=== PATIENT | male | born 1960 | race African-American/Black ===

== ENCOUNTER 2019-11-12 06:26 | Inpatient (IN) ==
[2019-11-12 06:51] LABS: BASO# 0.07 X1000 (0.0-0.2); EOS# 0.13 X1000 (0.0-0.7); EOS% 1.8 % (0.0-10.0); HEMATOCRIT 43.2 % (42.0-52.0); HEMOGLOBIN 13.7 g/dL (14.0-18.0); IMM GRAN# 0.02 X1000 (0.0-0.04); IMM GRAN% 0.3 % (0.0-0.5); LYMPH# 2.96 X1000 (1.2-3.4); LYMPH% 41.2 % (20.5-51.1); MCH 25.1 PG (27-31); MCHC 31.7 g/dL (33-37); MCV 79.3 FL (81-99); MONO# 0.57 X1000 (0.11-0.59); MONO% 7.9 % (1.7-9.3); MPV 10.5 FL (7.4-10.4); NEUT# 3.44 X1000 (1.4-6.5); NEUT% 47.8 % (42.2-75.2); PLT 206 X1000 (130-400); RBC 5.45 XMIL (4.7-6.1); RDW 15.7 % (11.5-14.5); WBC 7.19 X1000 (4.8-10.8)
[2019-11-12 06:52] LABS: BLOOD TYPE ARTERIAL; SAMPLE BLOOD
[2019-11-12 06:53] LABS: ALLEN TEST YES; BE 0.5 mmoll (-3.0-3.0); MODALITY CANNULA; O2(CT) 17.7 mL/dL (15.0-23.0); PCO2(98.6) 44 mmHg (35-45); PO2(98.6) 52 mmHg (60-100); SAO2 90.2 % (95.0-100.0); THB 14.4 g/dL (11.5-17.4); pH(98.6) 7.38 (7.35-7.45)
[2019-11-12 06:56] LABS: O2HB 87.4 % (95.0-99.0)
[2019-11-12] MEDS ORDERED: DUONEB (A & A) INH ONE (07:04)
[2019-11-12] MEDS ORDERED: APRESOLINE IV ONE (07:12)
[2019-11-12 07:25] LABS: INR 0.98; PROTIME 13.1 Seconds (11.0-16.0)
[2019-11-12 07:26] LABS: PTT 30.6 Seconds (22.3-41.8)
--- NOTE | 2019-11-12 07:28 | EKG Report ---
Test Performed on : 11/12/2019 06:35:10 AM Test Reason : sob, dizziness Blood Pressure : / mmHG Vent. Rate : 063 BPM Atrial Rate : 063 BPM P-R Int : 196 ms QRS Dur : 130 ms QT Int : 458 ms P-R-T Axes : 039 -13 013 degrees QTc Int : 468 ms Normal sinus rhythm. Left ventricular hypertrophy with QRS widening Abnormal ECG No previous ECGs available Unconfirmed Result
--- NOTE | 2019-11-12 07:29 | Diag Imaging Result Doc PS360 ---
CHEST-1 VIEW - 11/12/2019 INDICATION: sob, dizziness COMPARISON: None FINDINGS: There is mild cardiomegaly. There is pulmonary vascular congestion. There are some ill-defined increased markings in the lung bases which may represent mild pulmonary edema. No dense consolidations. No large pleural effusion. IMPRESSION: Cardiomegaly. Possible mild interstitial pulmonary edema. Electronically signed by Gerardo Chavis 11/12/2019 7:27 AM
[2019-11-12 07:30] LABS: AGAP 15; ALB/GLOB RATIO 1.5; ALBUMIN 4.2 g/dL (3.5-5.0); ALKALINE PHOSPHATASE 94 U/L (32-122); BUN 16 mg/dL (8-22); CALCIUM 8.8 mg/dL (8.8-10.2); CHLORIDE 105 mmol/L (98-107); COSMO 290; ESTIMATED GFR > 60; GLUCOSE 135 mg/dL (70-104); GOT 28 U/L (10-34); GPT 29 U/L (10-44); POTASSIUM 2.9 mmol/L (3.5-5.1); SODIUM 144 mmol/L (136-145); TCO2 24 mmol/L (25-35); TOTAL BILIRUBIN 0.71 mg/dL (0.20-1.00)
[2019-11-12] MEDS ORDERED: KLOR-CON PO ONE (07:32)
[2019-11-12] MEDS ORDERED: LASIX IV ONE (07:32)
--- NOTE | 2019-11-12 09:06 | Diag Imaging Result Doc PS360 ---
CT ANGIOGRM PULMONARY ARTERIES - 11/12/2019 INDICATION: sob, cough, hypoxia TECHNIQUE: Axial CT images were obtained after administering intravenous contrast. Coronal MIP images were generated. COMPARISON: None FINDINGS: There are several bilateral relatively large pulmonary emboli, involving all the lobar arteries. There is cardiomegaly. There is some hazy dependent atelectasis or infiltrate bilaterally. There is pneumomediastinum in the posterior mediastinum, at and below the level of the tracheal bifurcation. No pneumothorax. Upper abdominal images are unremarkable. There are moderate degenerative changes of the spine. No acute or suspicious bony lesion. IMPRESSION: 1. Several large bilateral pulmonary emboli. 2. Faint pneumomediastinum inferiorly. The reason is uncertain. No fluid collections. 3. Cardiomegaly. 4. This report was discussed with Dr. Moon on 11/12/2019 at 9:03 AM and was readback. This exam was performed using automated exposure control, adjustment of mA or kV according to patient size, and/or use of iterative reconstruction technique Electronically signed by Gerardo Chavis 11/12/2019 9:03 AM
[2019-11-12] MEDS ORDERED: LOVENOX 1 MG/KG SUBQ ONE (09:07)
--- NOTE | 2019-11-12 09:11 | PROVIDER DOCUMENTATION ---
This chart was entered by Renee Pino Scribe, acting as scribe for Kevin Moon MD. HPI-Respiratory General - General Chief Complaint: Nausea/Vomiting Stated Complaint: dizzy,n/v Time Seen by Provider: 11/12/19 06:40 Source: patient Allergies/Adverse Reactions: Patient Allergies Allergy/AdvReac Type Severity Reaction Status Date / Time No Known Allergies Allergy Verified 11/12/19 06:42 - History of Present Illness-Resp Nature of Presenting Problem: 59yom presents to ED by EMS cc SOB. dizziness, headache, weakness and cough w/mucous production. Pt reports he was at the [employer] [place] station this morning, headed into the bathroom and got really dizzy and SOB. Pt denies CP/F/C. Pt has hx of HTN but hasn't taken meds this morning. Pt b/p is 189/103 upon exam. Pt has hx of PE but is no longer on blood thinners. Quality of Pain: reports: aching, tightness Severity in ED: reports: moderate Onset/Duration: reports: this morning Timing: reports: still present Cough Quality/Degree: reports: moderate, productive cough Current Respiratory Medication Therapy: Initiated see nurses note Modifying Factors: improves with: nothing Associated Symptoms: reports: cough, dizziness, headache, shortness of breath, short of breath Similar Symptoms Previously?: No Recently seen or treated by another doctor?: No Review of Systems - Adult - REVIEW OF SYSTEMS - ADULT Constitutional: reports: see HPI, fatique. denies: chills, fever Eyes: reports: no symptoms reported Ears, Nose, Mouth & Throat: reports: no symptoms reported Cardiovascular: reports: no symptoms reported Respiratory: reports: see HPI, cough, shortness of breath Gastrointestinal: reports: no symptoms reported Genitourinary: reports: no symptoms reported Musculoskeletal: reports: no symptoms reported Integumentary: reports: no symptoms reported Neurological: reports: see HPI, dizziness/vertigo, headache/migraines Psychiatric: reports: no symptoms reported Endocrine: reports: no symptoms reported Hematologic/Lymphatic: reports: no symptoms reported Allergic/Immunologic: reports: no symptoms reported All Other Systems: Reviewed and Negative Past History - Adult - PAST MEDICAL HISTORY-ADULT Review of Records: reports: Nursing Assessment Review, Medications Reviewed, Social history reviewed & non-contributory. Major Childhood Illnesses: reports: denies history Cardiovascular: reports: denies history Respiratory: reports: denies history Gastrointestinal: reports: denies history Obstetrical/Gynecological: reports: denies history Genitourinary: reports: denies history Musculoskeletal: reports: denies history Neurological: reports: denies history Endocrine/Immune: reports: denies history Other Conditions: reports: denies history - IMMUNIZATION STATUS Childhood Immunizations: See Nurse Assessment Flu Vaccine: See Nurse Assessment - FAMILY HISTORY Family History: reviewed, not pertinent Physical Exam-General - PHYSICAL EXAM-ADULT Initial Vital Signs Reviewed: Yes - CONSTITUTIONAL General Appearance: alert. negative: anxious, combative - EYES Eyes: PERRL/EOMI, pink conjunctivae. negative: pale conjunctivae - HEAD, EARS, NOSE, MOUTH & THROAT HENMT: normocephalic/atraumatic, moist mucous membranes. negative: angioedema - NECK Neck: supple, normal inspection - RESPIRATORY Respiratory: chest non-tender, lungs clear, respiratory distress. negative: normal breath sounds (distant), crackles, rales, rhonchi, stridor, wheezing - CARDIOVASCULAR Cardiovascular: normal peripheral pulses, regular rate, rhythm. negative: bradycardia, tachycardia - GASTROINTESTINAL (ABDOMEN) Abdominal Exam: normal bowel sounds, non tender, soft. negative: rebound - LYMPHATIC Lymphatic: no adenopathy. negative: enlargement - MUSCULOSKELETAL Back Exam: normal inspection, no CVA tenderness, no vertebral tenderness Extremity: normal inspection, normal capillary refill. negative: deformity - SKIN Integumentary: normal color. negative: diaphoresis, jaundice, rash - NEUROLOGIC Neurologic: grossly normal - PSYCHIATRIC Psych/Mental Status: normal mood/affect, oriented x 3. negative: anxious, dis heveled Progress - PLAN OF CARE/RESULTS Progress/Plan/Lab Results: Vital Signs - 8 hr 11/12/19 06:33 11/12/19 06:44 11/12/19 07:23 Temperature 98.0 F Pulse Rate 65 65 61 Respiratory Rate 14 20 15 Blood Pressure 189/103 189/103 174/100 O2 Sat by Pulse Oximetry 80 L 89 L 98 11/12/19 07:32 11/12/19 08:02 11/12/19 08:56 Temperature 97.6 F Pulse Rate 59 L 70 68 Respiratory Rate 16 18 17 Blood Pressure 186/116 192/108 O2 Sat by Pulse Oximetry 99 100 11/12/19 07:55 Influenza Screen - Final Nasopharyngeal Laboratory Results - last 24 hr 11/12/19 11/12/19 11/12/19 06:36 06:36 06:36 WBC 7.19 RBC 5.45 Hgb 13.7 L Hct 43.2 MCV 79.3 L MCH 25.1 L MCHC 31.7 L RDW Std Deviation 15.7 H Plt Count 206 MPV 10.5 H Immature Gran % (Auto) 0.3 Neut % (Auto) 47.8 Lymph % (Auto) 41.2 Beaver % (Auto) 7.9 Eos % (Auto) 1.8 Baso % (Auto) 1.0 H Immature Gran # (Auto) 0.02 Neut # (Auto) 3.44 Lymph # (Auto) 2.96 Beaver # (Auto) 0.57 Eos # (Auto) 0.13 Baso # (Auto) 0.07 PT INR PTT (Actin FS) Specimen Type Sample Site pH pCO2 pO2 HCO3 Base Excess Oxyhemoglobin ABG O2 Sat (Calculated) ABG O2 Saturation ABG Carboxyhemoglobin ABG Methemoglobin Vinnie Test A-a O2 Difference Total Hemoglobin Lactate Liter Flow Blood Gas Modality FiO2 % Sodium 144 Potassium 2.9 L Chloride 105 Carbon Dioxide 24 L Anion Gap 15 BUN 16 Creatinine 1.0 Estimated GFR/1.73 m2 > 60 BUN/Creatinine Ratio 16 Glucose 135 H Calculated Osmolality 290 Calcium 8.8 Total Bilirubin 0.71 AST 28 ALT 29 Alkaline Phosphatase 94 Troponin T High Sens Sap-A-Ebccycdyfmd Pept 12 Total Protein 7.0 Albumin 4.2 Globulin 2.8 Albumin/Globulin Ratio 1.5 11/12/19 11/12/19 11/12/19 06:36 06:36 06:41 WBC RBC Hgb Hct MCV MCH MCHC RDW Std Deviation Plt Count MPV Immature Gran % (Auto) Neut % (Auto) Lymph % (Auto) Beaver % (Auto) Eos % (Auto) Baso % (Auto) Immature Gran # (Auto) Neut # (Auto) Lymph # (Auto) Beaver # (Auto) Eos # (Auto) Baso # (Auto) PT 13.1 INR 0.98 PTT (Actin FS) 30.6 Specimen Type ARTERIAL Sample Site R RADIAL pH 7.38 pCO2 44 pO2 52 L HCO3 25.0 Base Excess 0.5 Oxyhemoglobin 87.4 L* ABG O2 Sat (Calculated) 17.7 ABG O2 Saturation 90.2 L ABG Carboxyhemoglobin 2.10 ABG Methemoglobin 1.0 Vinnie Test YES A-a O2 Difference 207.0 Total Hemoglobin 14.4 Lactate 1.40 Liter Flow 6.0 Blood Gas Modality CANNULA FiO2 % 44.0 Sodium Potassium Chloride Carbon Dioxide Anion Gap BUN Creatinine Estimated GFR/1.73 m2 BUN/Creatinine Ratio Glucose Calculated Osmolality Calcium Total Bilirubin AST ALT Alkaline Phosphatase Troponin T High Sens 8 Tuq-I-Tbowpehbyny Pept Total Protein Albumin Globulin Albumin/Globulin Ratio Orders Category Date Time Status Nursing- Obtain EKG ONCE Care 11/12/19 06:[address] ANGIOGRM PULMONARY ARTERIES [CT] Stat Exams 11/12/19 07:05 Completed cxr [CHEST-1 VIEW] [RAD] Stat Exams 11/12/19 06:41 Completed ABG [RESP] Routine Lab 11/12/19 06:41 Completed CBC WITH ELECTRONIC DIFF [HEME] Stat Lab 11/12/19 06:36 Completed COMPREHENSIVE METABOLIC PANEL [CHEM] Stat Lab 11/12/19 06:36 Completed D-DIMER [COAG] Stat Lab 11/12/19 06:36 Received INFLUENZA SCREEN A/B Stat Lab 11/12/19 07:55 Completed PRO B-NATRIURETIC PEPTIDE Stat Lab 11/12/19 06:36 Completed PROTIME WITH INR [COAG] Stat Lab 11/12/19 06:36 Completed PTT [COAG] Stat Lab 11/12/19 06:36 Completed TROPONIN T HIGH SENSITIVITY Stat Lab 11/12/19 06:36 Completed Albuterol 2.5MG/Ipratrop 0.5MG [Duoneb (A & A)] Med 11/12/19 07:04 Discontinued 3 ml INH NOW ONE Enoxaparin 1 mg/kg [Lovenox 1 mg/kg] Med 11/12/19 09:07 Once 1 each SUBQ NOW ONE Furosemide [Lasix] Med 11/12/19 07:32 Discontinued 40 mg IV NOW ONE Hydralazine [Apresoline] Med 11/12/19 07:12 Discontinued 10 mg IV NOW ONE Potassium Chloride E.r. [Klor-Con] Med 11/12/19 07:32 Discontinued 40 meq PO NOW ONE Aerosol Treatments Routine Oth 11/12/19 07:04 Completed Aerosol Treatments Stat Oth 11/12/19 07:04 Completed EKG [EKG] Stat Ther 11/12/19 06:41 Draft Result Diagrams: 11/12/19 06:36 11/12/19 06:36 - EKG 1 Time of EKG reading by physician:: 06:35 EKG Read and Signed by:: Kevin Moon EKG Interpretation (*Must complete 3 of following elements*): Abnormal Rate: 63 Rhythm: NSR QRS: LVH, other (widening) - XRAY 1 XRAY: Bilateral XRAY Study: Chest Impression: See EMR Report ( IMPRESSION: Right upper lobe infiltrate compatible with bronchopneumonia. Electronically signed by Gerardo Chavis 11/12/2019 6:31 AM) - CT/MRI 1 CT Study: Angiogram Impression: See EMR Report ( IMPRESSION: 1. Several large bilateral pulmonary emboli. 2. Faint pneumomediastinum inferiorly. The reason is uncertain. No fluid collections. 3. Cardiomegaly. 4. This report was discussed with Dr. Moon on 11/12/2019 at 9:03 AM and was readback. 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 Blank) Departure - Departure Date of Disposition Decision: 11/12/19 Time of Disposition Decision: 09:07 DIAGNOSIS: Pulmonary embolism, Pneumomediastinum, Hypokalemia, Hypoxia, Respiratory distress Disposition: ADMITTED INPATIENT 09 Certified Medical Emergency: Emergent Condition: Serious Referrals and Follow-Ups: None,PCP [Primary Care Provider] - - Critical Care Note This patient required my direct & personal management of CC.: Yes Total Time (mins): 60 Critical Care Statement: This patient required my direct personal management to treat or rule out processes, the absence of which, could potentiallly result in sudden, clinically significant life or limb threatening deterioration. Attestation - Physician/ JAE Attestation Patient care was provided by Advanced Practice Provider:: No The physician spent face to face time with patient:: Yes Advanced Practice Provider documentation review:: Supervising physician onsite and consulted in the evaluation and care of this patient. The physician did have a face to face encounter with the patient. This chart was documented by the indicated scribe, (Renee Pino, [place]) and accurately reflects the services I performed and decisions made by me, Kevin Moon MD, as attested by the provider's signature.
[2019-11-12] MEDS ORDERED: LOVENOX SUBQ ONE (09:45)
[2019-11-12] MEDS ORDERED: APRESOLINE IV PRN (10:25)
--- NOTE | 2019-11-12 11:01 | HISTORY AND PHYSICAL ---
PRIMARY CARE PHYSICIAN: In [place]. CHIEF COMPLAINT: Dizziness, shortness of breath and vomiting that began this morning. HISTORY OF PRESENTING ILLNESS: This is a 59-year-old male who presents to [facility] via EMS after he was at a local gas station this morning, was headed to the bathroom and felt very dizzy and short of breath. States that he has a history of pulmonary emboli, hypertension, and BPH requiring him to self cath. He has not been compliant with his medication regimen and has been off his blood thinner for a couple of months and has not taken his blood pressure medication recently also. When he arrived to the emergency room, his blood pressure was noted to be 189/103. He was saturating 80% on room air, is currently on a non-rebreather, saturating 100%. Workup showed a D-dimer of 12.91. We did a pulmonary arteriogram that showed several large bilateral pulmonary emboli and a faint pneumomediastinum inferiorly, so he will be admitted to the PVC unit for further evaluation and treatment. PAST MEDICAL HISTORY: Pulmonary emboli, hypertension, BPH with self catheterization. PAST SURGICAL HISTORY: Appendectomy. FAMILY HISTORY: Reviewed and noncontributory. SOCIAL HISTORY: He is a former smoker, who smoked about a half a pack a day for 12 years and quit approximately 31 years ago. Denied any alcohol or illicit drug use. ALLERGIES: He has no known drug allergies. HOME MEDICATIONS: We are going to contact [facility] to see if we can get a reconciliation of his medications as the patient is unable to remember what he takes. We will also try to verify, even though it has been a couple of months since he has been on his blood thinner, we will try to see if we can figure out what medication he was taking at that time. LABORATORY DATA: Showed a white blood cell count of 7.19, hemoglobin 13.7, hematocrit 43.2, platelets 206,000. PT of 13.1, INR 0.98. D-dimer 12.91. ABG showed a pH of 7.38, pCO2 44, PO2 52, bicarb 25, and this was on 6 L via nasal cannula. Sodium 144, potassium 2.9, chloride 105, CO2 24, BUN of 16, creatinine 1, glucose 135. Cardiac enzyme was negative. ProBNP of 12. Chest x-ray showed cardiomegaly with possible mild interstitial pulmonary edema. EKG showed normal sinus rhythm at 63. Pulmonary arteriogram showed several large bilateral pulmonary emboli, a faint pneumomediastinum inferiorly with uncertain reason and cardiomegaly. REVIEW OF SYSTEMS: He denied any fever, chills, blurred vision. He did have some dizziness, shortness of breath and productive cough. Denied any chest pain, abdominal pain. He was positive for nausea, vomiting. Denied any diarrhea, hematemesis, or burning or hurting with urination. PHYSICAL EXAMINATION: VITAL SIGNS: On arrival, he had a temperature of 98 degrees, pulse 65, respirations 14, blood pressure 189/103, saturating 80% on room air. Currently is saturating 100% on a non-rebreather. Was given a 10 mg hydralazine IV x1 and a 40 mg IV x1 Lasix, and we will monitor his blood pressure. HEENT: Normocephalic, atraumatic. Normal ENT inspection. Oropharynx and nares are clear. EYES: Pupils are equal, round, and reactive to light and accommodation. Extraocular movements are intact. NECK: Normal inspection. Normal range of motion. LUNGS: Diminished breath sounds throughout lung ventura with mild work of breathing noted. Equal lung expansion, chest wall movement noted and continues on his non-rebreather O2. HEART: Regular rate and rhythm. No murmurs, rubs, or gallops. ABDOMEN: Soft, nontender, nondistended. Bowel sounds are present x4 quadrants. MUSCULOSKELETAL: He has 5/5 strength x4 extremities. NEUROLOGICAL: The cranial nerves 2-12 appear grossly intact. ASSESSMENT: 1. Elevated D-dimer. 2. Bilateral multiple pulmonary emboli. 3. Uncontrolled hypertension. 4. Hypokalemia. 5. Benign prostatic hypertrophy with self catheterization. PLAN: He will be admitted to the PVC unit, placed on telemetry and O2 per protocol. Healthy heart diet. We will place him on Lovenox 1 mg/kg subcu q.12. We will do hydralazine 10 mg IV q.4 hours p.r.n. for systolic greater than 190, diastolic greater than 100. Zofran 4 mg IV q.4 hours p.r.n. We will do hypercoagulable workup. We will call [facility] to see if we can verify and update his home medications so those can be restarted. He certainly has some medical noncompliance. Further orders after seen by attending. Dictated by ISHMAEL Victoria for Wilber Lewis MD cc: ISHMAEL Victoria MD
[2019-11-12] MEDS: ZOFRAN IV PRN ×3 (12:13→23:30)
[2019-11-12] MEDS: TYLENOL PO PRN (12:17)
--- NOTE | 2019-11-12 19:29 | HISTORY AND PHYSICAL ---
HISTORY OF PRESENT ILLNESS ADDENDUM: The patient seen and examined by me [id number]. All the laboratory, vital signs and images were reviewed. The patient presented to the emergency department with a chief complaint of shortness of breath that has been going on since last Tuesday. Apparently, he was at work last Tuesday and he started having some shortness of breath and it has been increasing on a daily basis. Today he was at a local gas station and he felt really dizzy and short of breath. He has a past medical history of pulmonary emboli that apparently happened 5 months ago and he does not remember the name of the medication, but he ran out of it. Also, he has a history of hypertension and BPH. Apparently, he has been having self catheterization. There is a catheterization. CT angiogram showed several large bilateral pulmonary emboli. He was placed on Lovenox 1 mg/kg every 12 hours, acetaminophen, hydralazine as needed, as well as Zofran. I will order an ultrasound of the heart. I will start this patient on tamsulosin as well, which apparently he has not been taking for a little bit, and actually he has not been compliant with the medications. He does not remember the name of any of them. I agree with the nurse practitioner's assessment and plan. cc: Wilber Lewis MD
[2019-11-12] MEDS: NORVASC PO SCH (21:26)
[2019-11-12] MEDS: LOVENOX SUBQ SCH (21:26)
[2019-11-12] MEDS ORDERED: AYR NASAL SPRAY NAS PRN (23:52)
[2019-11-13 06:47] LABS: BASO# 0.01 X1000 (0.0-0.2); BASO% 0.2 % (0.0-0.8); EOS# 0.02 X1000 (0.0-0.7); EOS% 0.3 % (0.0-10.0); HEMOGLOBIN 13.8 g/dL (14.0-18.0); LYMPH# 2.21 X1000 (1.2-3.4); LYMPH% 36.5 % (20.5-51.1); MCH 25.5 PG (27-31); MCHC 32.1 g/dL (33-37); MCV 79.3 FL (81-99); MONO% 8.3 % (1.7-9.3); MPV 11.1 FL (7.4-10.4); NEUT# 3.32 X1000 (1.4-6.5); NEUT% 54.7 % (42.2-75.2); PLT 229 X1000 (130-400); RBC 5.42 XMIL (4.7-6.1); RDW 15.9 % (11.5-14.5); WBC 6.06 X1000 (4.8-10.8)
--- NOTE | 2019-11-13 06:48 | PROGRESS NOTE ---
DATE: 11/13/2019 SUBJECTIVE: Mr. Adams was admitted on 11/12/2019. He is from [place], [place]. 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 This is a 59-year-old black male presented to [facility] by EMS. He was at a local gas station this morning, was headed to the bathroom, and felt very dizzy and short of breath. He states that he has a history of pulmonary emboli, hypertension, and benign prostatic hypertrophy requiring self catheterization. He has not been compliant with medication regimen, and has been off his blood thinner for a couple of months, and has not taken his blood pressure medication. When he arrived to the emergency department, blood pressure was 189/103, and he is satting at 80% on room air currently. In the emergency room, they put him on a non-rebreather and was saturating up to 100%. Workup showed a D-dimer of 12.92. He had pulmonary arteriogram that showed several large bilateral pulmonary emboli and faint pneumomediastinum inferiorly. He was admitted to [facility], and put on anticoagulation. PAST MEDICAL HISTORY: Pulmonary emboli, hypertension, benign prostatic hypertrophy, self catheterizes, and appendectomy. OBJECTIVE: This morning he says he feels good and is breathing good. He has a little nasal congestion. Otherwise, he remains afebrile, temperature 97.9 degrees, pulse 60, respirations 19, and blood pressure 150/97. Pupils are equal and round. Lungs are clear in all lung ventura. Cardiovascular regular rhythm rate without murmur or S3. Urine output was 4400 mL. ASSESSMENT AND PLAN: 1. Bilateral pulmonary emboli, symptomatic. Appears to be hemodynamically stable. 2. Accelerated hypertension. Blood pressure under better control. 3. Hypokalemia, supplemented. 4. Benign prostatic hypertrophy. He does self catheterization. REVIEW OF MEDICATIONS: 1. He is on Tylenol 650 mg p.o. q.6 hours p.r.n. 2. Norvasc 5 mg b.i.d. 3. Lovenox 120 mg subcu q.12h. 4. Flomax 0.4 mg daily. 5. Lovenox 120 mg q.12. REVIEW OF LABORATORY: White count 7190, hematocrit 43, and platelet count 206,000. Sodium 144, potassium 2.9, chloride 105, BUN 16, and creatinine 1.0. We did a hypercoagulation workup checking lupus inhibitor, factor V or Leiden syndrome, protein C and protein S, and [id number] gene mutation, and that is still pending. We will check electrolytes again today. cc: Vinnie Montgomery MD
[2019-11-13 07:37] LABS: AGAP 15; BUN 19 mg/dL (8-22); CALCIUM 9.2 mg/dL (8.8-10.2); CHLORIDE 102 mmol/L (98-107); COSMO 289; CREATININE 1.1 mg/dL (0.7-1.2); ESTIMATED GFR > 60; GLUCOSE 89 mg/dL (70-104); POTASSIUM 3.1 mmol/L (3.5-5.1); SODIUM 144 mmol/L (136-145); TCO2 27 mmol/L (25-35)
[2019-11-13] MEDS: LOVENOX SUBQ SCH ×2 (08:33→20:39)
[2019-11-13] MEDS: FLOMAX PO SCH (08:33)
[2019-11-13] MEDS: NORVASC PO SCH ×2 (08:33→20:39)
[2019-11-13] MEDS: TYLENOL PO PRN (11:44)
--- NOTE | 2019-11-13 14:06 | ECHO REPORT ---
ORDER DATE: 11/12/2019 INDICATION: CHF, pulmonary embolus. FINDINGS: 1. The right atrium appears normal in size. 2. Mild tricuspid regurgitation. RV systolic pressure of 54 suggesting pulmonary hypertension. 3. Normal RV size and systolic function. 4. Mild pulmonic insufficiency. 5. Suggestion of severe left atrial enlargement with a volume index of 53. 6. No mitral valve prolapse. Mild mitral regurgitation. No evidence of mitral stenosis. 7. Normal LV size, end-diastolic dimension of 3.2 cm. Severe left ventricular hypertrophy with a posterior and interventricular septal wall thickness of 1.8 and 1.9 cm respectively. There is no evidence of increased left ventricular outflow tract gradient. Normal LV systolic function. Calculated ejection fraction of 57% with normal wall motion. 8. The aortic valve opens well. It is trileaflet. No evidence of stenosis or insufficiency. 9. The aorta appears normal in visualized segments. 10. No pericardial effusion identified. 11. Grade 2 diastolic dysfunction. cc: MD Wilber Gonzalez MD
[2019-11-14] MEDS: NORVASC PO SCH ×2 (09:09→21:00)
[2019-11-14] MEDS: FLOMAX PO SCH (09:09)
[2019-11-14] MEDS: LOVENOX SUBQ SCH ×2 (09:09→21:00)
--- NOTE | 2019-11-14 13:28 | PROGRESS NOTE ---
DATE: 11/14/2019 SUBJECTIVE: Mr. Adams feels good. His breathing is comfortable. He remains afebrile. He is hoping he gets to go home tomorrow. OBJECTIVE: Vital signs: Temperature 98.7 degrees, pulse 72, respirations 16, blood pressure 167/107, last several blood pressures 150/97, 153/89, 156/93. HEENT: Pupils are equal and round. Lungs: Clear in all lung ventura. Cardiovascular: Regular rhythm and rate without murmur or S3. Urine output: 2000 mL. ASSESSMENT AND PLAN: 1. Bilateral pulmonary emboli, symptomatic. He has had a history of these before. He has been on Lovenox, doing better. I plan to let him go home. I am going to put him on Xarelto. I told him he can probably try and go back to work on Tuesday. Today is Tuesday, go home on . 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 2. Accelerated hypertension. Blood pressure doing better. 3. Hypokalemia, supplemented. 4. Benign prostatic hypertrophy. He does self-catheterizations. He has a catheter in now which he wants to leave in. REVIEW OF HIS ORDERS: Looks good. REVIEW OF HIS LAB: His electrolytes look good as well, so hope to send him home tomorrow on Xarelto. cc: Vinnie Montgomery MD
[2019-11-14] MEDS: TYLENOL PO PRN (16:16)
[2019-11-15] MEDS: NORVASC PO SCH ×2 (09:06→20:52)
[2019-11-15] MEDS: FLOMAX PO SCH (09:06)
[2019-11-15] MEDS: LOVENOX SUBQ SCH ×2 (09:06→20:53)
[2019-11-15] MEDS: TYLENOL PO PRN ×3 (09:12→21:04)
--- NOTE | 2019-11-15 12:47 | DISCHARGE SUMMARY ---
ADMISSION DATE: 11/12/2019 DISCHARGE DATE: 11/15/2019 HISTORY AND HOSPITAL COURSE: He is from [place], [place]. 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 He came in with dizziness, shortness of breath, vomiting that began the morning of 11/12/2019. This is a 59-year- old, black male, who presented to [facility] via EMS. He was at a local gas station, and was headed to the bathroom, felt very weak and dizzy and short of breath. States that he had a history of pulmonary emboli, hypertension, benign prostatic hypertrophy, requiring him to do self-catheterization. He has not been compliant with his medication regimen, has been off his blood thinner for a couple of months, and is not taking his blood pressure medication. When he arrived in the emergency room, blood pressure was noted to be 189/103, saturations 80% on room air. Currently on nonrebreather. When they evaluated him, he was saturating 100%. Workup showed a D-dimer of 12.91. They did a pulmonary arteriogram that showed several large bilateral pulmonary emboli and faint pneumomediastinum inferiorly. He was admitted to [facility], started on Lovenox high dose, and showed continued improvement clinically. [place] he was stable and ready to go home. He was eating well, and blood pressure well controlled, hemodynamically stable, did not see evidence of right heart strain, and felt he could be discharged on 11/15/2019. He had an echocardiogram that showed normal right ventricular size and systolic function, mild tricuspid regurgitation, right RV pressure is around 54 mmHg, normal left ventricular size and function, LV systolic function looked good. He had been on Xarelto before. We will reload him with Xarelto 15 mg twice a day for 21 days, and then start him on his 20 mg of Xarelto every day. Today is 11/15/2019. I think he will be able to go back to work in another 12 days, and so I will okay him for a week from Tuesday. Today is . DISCHARGE MEDICATIONS: Norvasc 5 mg b.i.d., he will be on Flomax 0.4 mg p.o. daily, and then his Xarelto 15 mg twice a day for 21 days, and then change him to 20 mg daily. DISPOSITION: Will discharge him home. FOLLOWUP: He is to follow up with his primary care in [place]. cc: Vinnie Montgomery MD
[2019-11-15] MEDS ORDERED: PNEUMOVAX 23 IM ONE (13:16)
[2019-11-15] MEDS ORDERED: FLU VACCINE IM ONE (13:16)
[2019-11-16] MEDS: FLOMAX PO SCH (08:28)
[2019-11-16] MEDS: LOVENOX SUBQ SCH ×2 (08:28→21:11)
[2019-11-16] MEDS: NORVASC PO SCH ×2 (08:28→21:11)
--- NOTE | 2019-11-16 20:50 | CARDIOLOGY CONSULTATION ---
DATE: 11/16/2019 CHIEF COMPLAINT: On presentation, dizziness and shortness of breath. HISTORY OF PRESENT ILLNESS: Mr. Kwabena Adams is a 59-year-old black male with a history of PE in the past as well as hypertension, who presented for evaluation. 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 He was at a gas station that morning and began to feel very lightheaded and dizzy, along with short of breath. He subsequently was evaluated in the ER and pulmonary arteriogram demonstrated several large bilateral pulmonary emboli. In addition, there was a faint pneumomediastinum inferiorly of uncertain significance. He was subsequently admitted and placed on anticoagulation. The patient reports a history of PEs in the past, and he was supposed to be on Xarelto but he said he felt better so he stopped it. He was apparently set for discharge yesterday and became quite lightheaded upon standing. They decided to hold him over for observation. PAST MEDICAL HISTORY: 1. Significant for hypertension. 2. PE in the past, supposed to be on Xarelto. 3. BPH, with apparent self-catheterization. SOCIAL HISTORY: Previous smoker, quit around 30 years ago after a roughly 6-pack-year history. No alcohol or illicit drugs. 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 He lives in [place]. Family is currently in the room. FAMILY HISTORY: Significant for hypertension. REVIEW OF SYSTEMS: A 10-system review of systems is negative except for those as mentioned in HPI. PHYSICAL EXAMINATION: He is afebrile. His heart rate is 74. His blood pressure currently is 150/91. He does have significant hypertension over the course of the hospitalization. Generally he is in no acute distress. HEENT: Oropharynx is moist. Poor dentition. Eye examination: [place] conjunctivae, white sclerae. His neck examination shows no obvious thyromegaly or thyroid tenderness. Cardiovascularly, he sounds to be in a regular rate and rhythm. He has no obvious murmurs. He has no S3. He has no lower extremity edema. His chest exam sounds clear. He has no increased work of breathing. His abdomen is soft, nontender, nondistended. He has no obvious organomegaly. His skin exam is warm and dry throughout, without any rashes. Neurologically, he is moving all extremities well. He has no lateralizing deficits. DIAGNOSTIC DATA: Pulmonary arteriogram as detailed above. His echocardiogram was checked and demonstrated an EF of 57%; severe left ventricular hypertrophy; pulmonary hypertension was suggested, with an RV systolic pressure of 54; normal right ventricular systolic function; grade 2 diastolic dysfunction. His telemetry has been essentially benign during the hospitalization, showing sinus rhythm. No significant arrhythmias. His EKG on presentation demonstrated sinus rhythm; no acute ischemic changes; suggestion of LVH. LABORATORY DATA: White count is 6, hematocrit 43, platelet count 229,000. His sodium is 144, potassium is 3.1, BUN 19, creatinine is 1.1. Those were from labs from 11/13. He had a hypercoagulable workup which was unremarkable. ASSESSMENT: Mr. Adams is a 59-year-old gentleman who suffered large bilateral pulmonary emboli. PLAN: His dizziness and lightheadedness could still be residual from the PEs. I will check orthostatics, recheck laboratories in the morning. He has not had any labs for 3 days, and he was hypokalemic a few days ago. Presently I do not have any acute recommendations. I have had an at- length discussion with the patient as well as his family regarding compliance with the Xarelto going down the road, and urged him to follow up with his primary in [place] to follow up on anticoagulation. cc: Seng Cox MD
[2019-11-17 06:16] LABS: AGAP 11; BUN 8 mg/dL (8-22); CHLORIDE 104 mmol/L (98-107); GLUCOSE 90 mg/dL (70-104); POTASSIUM 3.3 mmol/L (3.5-5.1); SODIUM 142 mmol/L (136-145); TCO2 27 mmol/L (25-35)
[2019-11-17 06:17] LABS: CALCIUM 9.4 mg/dL (8.8-10.2); COSMO 281; CREATININE 0.9 mg/dL (0.7-1.2); ESTIMATED GFR > 60; MAGNESIUM 2.2 mg/dL (1.5-2.7)
[2019-11-17] MEDS: ZOFRAN IV PRN ×2 (07:23→12:40)
[2019-11-17] MEDS: NORVASC PO SCH ×2 (08:40→21:43)
[2019-11-17] MEDS: PRINZIDE 10/12.5MG PO SCH (08:40)
[2019-11-17] MEDS: FLOMAX PO SCH (08:40)
[2019-11-17] MEDS: LOVENOX SUBQ SCH ×2 (08:41→21:43)
--- NOTE | 2019-11-17 12:03 | PROGRESS NOTE ---
DATE: 11/17/2019 Mr. Adams is feeling better. He did have some nausea this morning. Did have a little blood from the urethra. He does self-catheterizations. OBJECTIVE: Temperature 98.3 degrees, pulse 89, respirations 18, blood pressure 149/95. Blood pressures have been 156/100, 173/111, 153/89, 149/95. Pupils are equal and round. Lungs are clear in all lung [place]. Cardiovascular regular rhythm and rate without murmur or S3. He was sitting up in a chair. LABORATORY: Lab from today, sodium 142, potassium 3.3, chloride 104, BUN 8, creatinine 0.9, magnesium was 2.2. ASSESSMENT AND PLAN: Appreciate cardiology's help. Dizziness and lightheadedness, still could be residual from pulmonary emboli. His blood pressures seem to be doing well. He had some hypokalemia for a couple days, and he feels like he would be ready go home tomorrow and wants to try and go home tomorrow. So, I will supplement a little bit of his potassium. Blood pressures look good, and hopefully will be able to go home tomorrow with some Xarelto. cc: Vinnie Montgomery MD
[2019-11-17] MEDS: KLOR-CON PO SCH ×2 (12:37→21:43)
[2019-11-17] MEDS: TYLENOL PO PRN (17:42)
[2019-11-18 07:54] VITALS: BP 152/96
--- NOTE | 2019-11-18 09:14 | DISCHARGE SUMMARY ---
ADMISSION DATE: 11/12/2019 DISCHARGE DATE: 11/18/2019 HISTORY AND HOSPITAL COURSE: He is from [place], [place]. He was here. 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 Came in with dizziness and shortness of breath on the morning of 11/12/2019. A 59-year-old, black male presented to [facility] via EMS. [place] very lightheaded and trouble breathing. He was at a local gas station, headed to the bathroom, felt very weak and dizzy, and short of breath. States that he has a history of pulmonary emboli in the past, history of hypertension, benign prostatic hypertrophy requiring self-catheterization which he had been doing for several years. He has not been compliant with his medication regimen. He has been off of his blood thinner for a couple months and is not taking his blood pressure medications. When he arrived in the emergency room, he was noted to be blood pressure 189/103, saturations 80% on room air. We put him on a nonrebreather and was admitted. Pulmonary CT arteriogram showed several large bilateral pulmonary emboli, faint mediastinum inferiorly, so was put on high-dose Lovenox. He showed steady improvement. We adjusted his blood pressure medications. He felt better and wanted to go home on 11/18/2019. DISCHARGE MEDICATIONS: He will be on Norvasc 5 mg b.i.d., lisinopril/hydrochlorothiazide which he takes a 10/12.5 two every day, and we put him on Xarelto. He will take 15 mg twice a day for 21 days and then 20 mg a day. I gave him prescription for that. He is on Flomax 0.4 mg p.o. daily. He takes Klor-Con 40 mEq b.i.d. We will discharge him home. cc: Vinnie Montgomery MD
[2019-11-18] MEDS: FLOMAX PO SCH (09:36)
[2019-11-18] MEDS: PRINZIDE 10/12.5MG PO SCH (09:36)
[2019-11-18] MEDS: LOVENOX SUBQ SCH (09:36)
[2019-11-18] MEDS: KLOR-CON PO SCH (09:36)
[2019-11-18] MEDS: NORVASC PO SCH (09:36)
== END 2019-11-18 11:17 | disposition home or self-care (01) | DRG 176 ==
LOC: SUPCPDRO → ED 06:26 → SUATTDRO 09:23 → EDIPHOLD 09:23 → 2N 15:28 → 4N 11-17 16:29
PROVIDERS: ATTEND Emergency Medicine